=== PATIENT | female | born 1960 | race African-American/Black ===

== ENCOUNTER 2023-01-17 09:26 | Emergency (ER) | payer OTHER ==
[~2023-01-17] VITALS: Ht 180.3 cm; Wt 75.7 kg
[2023-01-17 10:14] LABS: CALCIUM, SERUM 9.6 mg/dL (8.5-10.1); CARBON DIOXIDE 30 mmol/L (21-32); CHLORIDE 103 mmol/L (98-107); CREATININE 1.1 mg/dL (0.6-1.3); GLUCOSE 242 mg/dL (74-106); SODIUM SERUM 136 mmol/L (136-145); UREA NITROGEN, BLOOD 24 mg/dL (7-18)
[2023-01-17 10:21] LABS: ACETAMINOPHEN <10 ug/ml (10-30); ALANINE AMINOTRANSFERASE 24 U/L (12-78); ALBUMIN 3.3 g/dL (3.4-5.0); ALCOHOL, BLOOD < 2 mg/dL (0-10); ALKALINE PHOSPHATASE 93 U/L (46-116); ASPARTATE AMINOTRANSFERASE 12 U/L (15-37); BILIRUBIN,DIRECT 0.1 mg/dL (0.0-0.2); BILIRUBIN,TOTAL 0.5 mg/dL (0.2-1.0); SALICYLATE < 0.2 mg/dL (2.8-20.0); TOTAL PROTEIN, SERUM 8.1 g/dL (6.4-8.2)
[2023-01-17 11:08] LABS: BASOPHILS % (AUTO) 0.7 % (0.0-2.0); EOSINOPHILS # (AUTO) 0.1 K/uL (0.0-0.7); EOSINOPHILS % (AUTO) 2.1 % (0.0-6.0); HEMATOCRIT 42 % (33-45); HEMOGLOBIN 14.2 g/dL (11.5-14.8); LYMPHOCYTES # (AUTO) 1.4 K/uL (0.8-4.8); MEAN CORPUSCULAR HEMOGLOBIN 29 PG (26.0-33.0); MEAN CORPUSCULAR HGB CONC 34 g/dl (31.0-36.0); MEAN CORPUSCULAR VOLUME 86 fL (82-100); MONOCYTES # (AUTO) 0.7 K/uL (0.1-1.30); NEUTROPHILS # (AUTO) 1.7 K/uL (1.8-8.9); NEUTROPHILS % (AUTO) 42.2 % (43.0-81.0); PLATELET COUNT (AUTO) 147 K/uL (150-450); RED BLOOD CELL COUNT(AUTO) 4.87 MIL/uL (4.0-5.2); RED CELL DISTRIBUTION WIDTH 13.3 % (11.5-15.0); WHITE BLOOD COUNT (AUTO) 3.9 K/uL (4.3-11.0)
[2023-01-17] MEDS ORDERED: TEMA15CA PO (15:07)
[2023-01-17] MEDS ORDERED: MAG30ORA PO (15:07)
[2023-01-17] MEDS ORDERED: MULT-24 PO (15:07)
[2023-01-17] MEDS ORDERED: BENZ1TAB7 PO (15:07)
[2023-01-17] MEDS ORDERED: DIVA-76 PO (15:07)
[2023-01-17] MEDS ORDERED: LORA-259 PO (15:07)
[2023-01-17] MEDS ORDERED: BISA10SU11 RC (15:07)
[2023-01-17] MEDS ORDERED: HALO10TA13 PO (15:07)
[2023-01-17] MEDS ORDERED: ACET-868 PO (15:07)
[2023-01-17] MEDS ORDERED: INSU100V11 SQ (15:07)
[2023-01-17] MEDS ORDERED: METF-440 PO (15:07)
[2023-01-17] MEDS ORDERED: SENN-261 PO (15:07)
[2023-01-17] MEDS ORDERED: NA P133E RC (15:07)
[2023-01-17] MEDS ORDERED: LEVE500T9 PO (15:07)
[2023-01-17] MEDS ORDERED: GLUC1KIT SQ (15:07)
[2023-01-17] MEDS ORDERED: MAGN400O6 PO (15:07)
[2023-01-17] MEDS ORDERED: HALO5TAB PO (15:07)
[2023-01-17] MEDS ORDERED: ATOR10TA PO (15:07)
[2023-01-17] MEDS ORDERED: TYL2T PO (15:07)
[2023-01-17] MEDS ORDERED: LORAZEPAM INJ 2 MG/ML VIAL ONE (15:15)
[2023-01-17] MEDS ORDERED: OLANZAPINE 10 MG VIAL IM ONE (15:15)
[2023-01-17] MEDS: LORAZEPAM INJ 2 MG/ML VIAL IM ONE (15:30)
[2023-01-17] MEDS: OLANZAPINE 10 MG VIAL IM ONE (15:30)
[2023-01-18] MEDS ORDERED: OLANZAPINE 10 MG VIAL IM ONE (01:00)
[2023-01-18] MEDS ORDERED: LORAZEPAM INJ 2 MG/ML VIAL ONE (01:01)
[2023-01-18] MEDS: OLANZAPINE 10 MG VIAL IM ONE (01:05)
[2023-01-18] MEDS: LORAZEPAM INJ 2 MG/ML VIAL IM ONE (01:05)
[2023-01-18 02:13] LABS: APPEARANCE,URINE SLIGHTLY CLOUDY (CLEAR); BILIRUBIN,URINE NEGATIVE (NEGATIVE); BLOOD, URINE TRACE-INTA Ery/uL (NEGATIVE); COLOR,URINE YELLOW (YELLOW); KETONES,URINE NEGATIVE (NEGATIVE); LEUKOCYTE ESTERASE ,URINE 1+ (NEGATIVE); NITRITE, URINE NEGATIVE (NEGATIVE); PH,URINE 6.5 (5.0-8.0); PROTEIN,URINE NEGATIVE (NEGATIVE); UGLUCOSE NEGATIVE (NEGATIVE); UROBILINOGEN,URINE 0.2 EU/dL (0.2)
[2023-01-18 02:14] LABS: ADD URINE CULTURE YES; BACTERIA,URINE Rare /HPF (None Seen); RBC,URINE 0-2 /HPF (0-2); SQUAMOUS EPITHELIAL CELL,UR Few /HPF (None Seen)
[2023-01-18 02:22] LABS: AMPHETAMINE, URINE NEGATIVE (NEGATIVE); BARBITURATE, URINE NEGATIVE (NEGATIVE); BENZODIAZEPINE, URINE NEGATIVE (NEGATIVE); CANNABINOID, URINE NEGATIVE (NEGATIVE); COCCAINE, URINE NEGATIVE (NEGATIVE); OPIATE, URINE NEGATIVE (NEGATIVE); PHENCYCLIDINE SCREEN,URINE NEGATIVE (NEGATIVE)
[2023-01-18 18:40] VITALS: BP 130/72; TEMP 98; O2SAT 98
== END 2023-01-18 18:16 ==
LOC: ER 09:29
DX: F91.1 Conduct disorder, childhood-onset type (principal); G40.909 Epilepsy, unspecified, not intractable, without status epilepticus; I11.0 Hypertensive heart disease with heart failure; I50.9 Heart failure, unspecified; E78.5 Hyperlipidemia, unspecified; E11.9 Type 2 diabetes mellitus without complications; F20.9 Schizophrenia, unspecified; Z20.822 Contact with and (suspected) exposure to COVID-19
CPT/HCPCS: 99285; 96372 ×4; 85025; 80048; 80076; 36415; 87426; 80143; 80320; 80307; 87086; 81001; J2060 ×2; J3490 ×2; C9803; G0480